=== PATIENT | female | born 1945 | race Caucasian/White ===

== ENCOUNTER 2019-03-11 09:52 | Inpatient (IN) | payer BC ==
[~2019-03-11] VITALS: Ht 162.6 cm; Wt 92.1 kg
--- NOTE | 2019-03-11 07:50 | NUR ---
Opening Note Report received from [facility] shift nurse. Patient is awake, alert, and oriented x 4. patient is flushed around the face, neck, and back. Stated, that this has been going on for several days. 02 is at 2L via NC, current O2 is 97%. Patient is getting breathing tx q4h. IV is on the RAC 22g, SL. Call light is within reach and bed is in the lowest position. Will continue to monitor.
[~2019-03-11 09:52] MED LIST: ALBU8.5H8 INH; CELE200C PO; ECO325 PO; GLIP5TAB26 PO; HYDR-1189 PO; LISI10TA5 PO; LOVA40TA75 PO; ROPI2TAB4 PO
--- NOTE | 2019-03-11 10:03 | NUR ---
Patient to ER bed 3 to gown for evaluation. Side rails up. Report given to Skyler DARDEN.
[2019-03-11 10:04] VITALS: BP_SYST 101
--- NOTE | 2019-03-11 10:10 | NUR ---
Patient AAOx4 c/o bilateral leg swelling with pitting edema 4+ and erythema on bilateral heels. Patient reports PMH of HTN, DM, hyperlipidemia, CKD Stage 4, and arthritis. Patient denies any allergies. Skin warm/pink/dry and respirations even and unlabored. No signs or symptoms of acute distress noted.
--- NOTE | 2019-03-11 10:35 | NUR ---
ER Dr. Gipson at bedside examining patient.
--- NOTE | 2019-03-11 10:37 | NUR ---
# 22 gauge angiocath placed to left hand. Use of asceptic technique. Opsite placed over site. Blood return noted. Blood for lab drawn from site. Flushed with 10 cc of normal saline. No evidence of infiltration noted. Patient tolerated well.
[2019-03-11] MEDS ORDERED: cefTRIAXone 1 GM IVPB PREMIX 50 ML IV ONE (10:45)
[2019-03-11 11:09] LABS: BASOPHILS % (AUTO) 0.3 % (0.0-2.0); EOSINOPHILS % (AUTO) 0.2 % (0.0-4.0); HEMATOCRIT 26.6 % (36-48); LYMPHOCYTES # (AUTO) 0.9 K/uL (1.0-5.5); LYMPHOCYTES % (AUTO) 8.3 % (20.5-51.5); MEAN CORPUSCULAR HEMOGLOBIN 32 pg (27-31); MEAN CORPUSCULAR HGB CONC 34 % (32-36); MEAN CORPUSCULAR VOLUME 96 fL (79.0-98.0); MONOCYTES # (AUTO) 0.6 K/uL (0.0-1.0); MONOCYTES % (AUTO) 5.7 % (1.7-9.3); NEUTROPHILS # (AUTO) 9.1 K/uL (1.8-7.7); NEUTROPHILS % (AUTO) 85.5 % (40.0-70.0); PLATELET COUNT (AUTO) 258 K/uL (130-430); RED BLOOD CELL COUNT(AUTO) 2.77 MIL/uL (4.2-6.2); RED CELL DISTRIBUTION WIDTH 15.5 % (9.0-15.0); WHITE BLOOD COUNT (AUTO) 10.7 K/uL (4.8-10.8)
[2019-03-11 11:11] LABS: HEMOGLOBIN 8.9 g/dL (12.0-16.0)
[2019-03-11 11:21] LABS: ANION GAP 15 (5-15); CALCIUM 8.9 mg/dL (8.4-11.0); CHLORIDE 103 mmol/L (98-107); CREATININE 4.03 mg/dL (0.55-1.30); GLUCOSE 126 mg/dL (70-99); SODIUM SERUM 134 mmol/L (136-145); UREA NITROGEN, BLOOD 90 mg/dL (8-21)
--- NOTE | 2019-03-11 11:21 | NUR ---
US Doppler being done at bedside.
[2019-03-11 11:26] LABS: ALANINE AMINOTRANSFERASE 34 U/L (12-78); ALBUMIN 3.1 g/dL (3.4-4.8); ASPARTATE AMINOTRANSFERASE 26 U/L (10-37); TOTAL BILIRUBIN 0.4 mg/dL (0.0-1.0)
[2019-03-11 11:30] LABS: POTASSIUM 5.8 mmol/L (3.5-5.1)
[2019-03-11 11:46] LABS: INR 1.3 (0.8-1.2); PROTHROMBIN TIME 13.5 SECS (9.5-12.5)
--- NOTE | 2019-03-11 12:51 | NUR ---
Medication reconciliation unable to be obtained.
--- NOTE | 2019-03-11 13:37 | NUR ---
DR ADAME PAGED PER ADMISSION
[2019-03-11] MEDS ORDERED: CALCIUM GLUCONATE 1 GM/10 ML VIAL IVP ONE (14:15)
[2019-03-11] MEDS ORDERED: SODIUM BICARBONATE 8.4% JECT 50 MEQ/50 ML SYRINGE IVP ONE (14:15)
--- NOTE | 2019-03-11 15:03 | NUR ---
ADMISSION NOTE Received patient from ER via gurney. Patient admitted with diagnosis of cellultis, renal failure. Patient is awake, alert, oriented X3. Patient oriented to hospital room, call light, toileting, pain management and safety-teach back done. Personal belongings checked and Belongings List documented. Call light within reach.
--- NOTE | 2019-03-11 15:16 | NUR ---
Transfer to telemetry via ACLS protocol. Licensed nurse present. IV present no signs or symptoms of infiltration.
[2019-03-11 15:17] VITALS: BP_SYST 119
--- NOTE | 2019-03-11 15:17 | NUR ---
Initial Note Report received from Skyler ER nurse. Patient is a and o X 3. Patient is unable to ambulate at the moment d/t BLE pain. LLE is red, edema x 3. IV is on the RAC 20g, Sl. Call light is within reach and bed is in the lowest position. Will continue to monitor.
[2019-03-11] MEDS ORDERED: VANCOMYCIN HCL 1,000 MG in NS 250 ML IV ONE (16:00)
[2019-03-11] MEDS ORDERED: DEXTROSE 50% JECT 50 ML DISP.SYRIN IVP PRN (16:45)
--- NOTE | 2019-03-11 16:48 | NUR ---
CONSULT: NEPHRO. DR. ADORNO CALLED (DR. SALES [employer] MACHINE TENDER) SPOKE TO NAYELY DIALED [phone] ADAME
[2019-03-11] MEDS: NACL 0.9% 1,000 ML IV SCH (16:59)
[2019-03-11] MEDS ORDERED: PIPERACILLIN/TAZOBACTAM 2.25 GM in NS 50 ML IV ONE (17:30)
--- NOTE | 2019-03-11 18:08 | NUR ---
Closing Note Patient is currently resting in bed. No c/o pain or distress at the moment. IV is on the RAC 20g running NS@60. Call light is within reach and bed is in the lowest position. Will endorse care to the oncoming nurse.
--- NOTE | 2019-03-11 18:50 | NUR ---
MD Rounds Dr. Zaman is examining the patient at the bedside. Orders received.
--- NOTE | 2019-03-11 19:20 | NUR ---
INITIAL NOTES: pt is in bed alert, awake, oriented x 4. no complain of pain. not distress. stable . vital sign are with in normal limit. sinus rhythm on monitor. ivf infusing to left hand using gauge 22- infusing well. no sign of infiltration. pt is has bilateral lower extremity pitting edema, left leg has redness cause by cellulitis. explain to pt plan of care. how to use call light. and safety. instructed to call for assistance and pain. pt demonstrate and verbalized understanding. call light in reach. side rails x 2. low bed position. bed alarm on. will monitor.
[2019-03-11 20:49] VITALS: BP_SYST 115
--- NOTE | 2019-03-11 22:00 | NUR ---
pt is still awake, alert. assisted to bedpan. clean pt and change chux, tolerate well. call light in reach, side rails up. bed alarm on. will monitor.
[2019-03-11 23:38] VITALS: BP_SYST 106
--- NOTE | 2019-03-12 | NUR ---
pt call for bed, stable. no pain. assisted to bed. clean pt. tolerate well. kirt light in reach. will monitor.
[2019-03-12] MEDS: PIPERACILLIN/TAZOBACTAM 2.25 GM in NS 50 ML IV SCH ×4 (00:14→17:36)
--- NOTE | 2019-03-12 01:57 | NUR ---
sleeping, no pain. no breathing difficulty, stable. side rails up. call light in reach. will monitor.
--- NOTE | 2019-03-12 05:10 | NUR ---
notes: sleeping,comfortable no pain. no breathing difficulty, stable. side rails up. call light in reach. will monitor.
[2019-03-12] MEDS: NACL 0.9% 1,000 ML IV SCH (06:01)
--- NOTE | 2019-03-12 06:55 | NUR ---
Nutrition Update David Scale 14 noted. Pt admitted for Cellulitis, Renal Failure Diet: Renal Standard 2gm Na 3gm K 1gm Phos BMI: 34.8 kg/m2 RD to follow per nutrition care standards.
--- NOTE | 2019-03-12 07:25 | NUR ---
closing: p tis sleeping, comfortable. no breathing difficulty, not distress, no pain. stable. ivf infusing well. needs attended the whole shift. call light in reach, side rails up. bedside report given to am rn.
[2019-03-12 08:00] VITALS: BP_SYST 110
--- NOTE | 2019-03-12 08:00 | NUR ---
initial notes rec patient asleep but aorusable to stimuli.ivf infusing well on the l hand. no infiltration noted. resp easy and unlabored. no osb noted. bed to the lowest position and side rails up and locked. call light withn reached and knows when to call for assistance. will continue to monitor patient.
[2019-03-12 11:12] VITALS: BP_SYST 111
[2019-03-12] MEDS: INSULIN REGULAR, HUMAN 100 UNITS/ML, 10 ML VIAL (humuLIN R) SUBCUT PRN ×2 (11:48→17:40)
[2019-03-12 15:12] VITALS: BP_SYST 112
[2019-03-12 15:31] LABS: BASOPHILS # (AUTO) 0.1 K/uL (0.0-0.2); BASOPHILS % (AUTO) 0.6 % (0.0-2.0); EOSINOPHILS # (AUTO) 0.1 K/uL (0.0-0.4); EOSINOPHILS % (AUTO) 1.2 % (0.0-4.0); HEMATOCRIT 30.5 % (36-48); LYMPHOCYTES % (AUTO) 10.7 % (20.5-51.5); MEAN CORPUSCULAR HEMOGLOBIN 32 pg (27-31); MEAN CORPUSCULAR HGB CONC 33 % (32-36); MEAN CORPUSCULAR VOLUME 96 fL (79.0-98.0); MONOCYTES # (AUTO) 0.6 K/uL (0.0-1.0); MONOCYTES % (AUTO) 6.3 % (1.7-9.3); NEUTROPHILS # (AUTO) 7.7 K/uL (1.8-7.7); NEUTROPHILS % (AUTO) 81.2 % (40.0-70.0); PLATELET COUNT (AUTO) 279 K/uL (130-430); RED BLOOD CELL COUNT(AUTO) 3.18 MIL/uL (4.2-6.2); RED CELL DISTRIBUTION WIDTH 15.3 % (9.0-15.0); WHITE BLOOD COUNT (AUTO) 9.5 K/uL (4.8-10.8)
[2019-03-12 15:41] LABS: ALANINE AMINOTRANSFERASE 40 U/L (12-78); ALBUMIN 2.5 g/dL (3.4-4.8); ANION GAP 11 (5-15); ASPARTATE AMINOTRANSFERASE 34 U/L (10-37); CALCIUM 9.1 mg/dL (8.4-11.0); CHLORIDE 106 mmol/L (98-107); CREATININE 2.53 mg/dL (0.55-1.30); GLUCOSE 211 mg/dL (70-99); POTASSIUM 4.8 mmol/L (3.5-5.1); SODIUM SERUM 136 mmol/L (136-145); TOTAL BILIRUBIN 0.3 mg/dL (0.0-1.0); UREA NITROGEN, BLOOD 58 mg/dL (8-21)
--- NOTE | 2019-03-12 19:42 | NUR ---
Opening note Received patient AOx4, resting supine in bed, no s/sx of distress noted. NS infusing at 60 ml/hr. Bed is locked to lowest position, side rails up 3x, and bed alarm on.Instructed on use of call light. Updated board.
[2019-03-12 20:00] VITALS: BP_SYST 108
--- NOTE | 2019-03-12 23:50 | NUR ---
Antibiotic Due antibiotic administered and fingerstick blood glucose test done. Patient assisted w/ bed salazar. Safety precautions in place and call light w/in reach.
[2019-03-13 00:03] VITALS: BP_SYST 114; BP_SYST 136
[2019-03-13] MEDS: NACL 0.9% 1,000 ML IV SCH (00:54)
[2019-03-13] MEDS: PIPERACILLIN/TAZOBACTAM 2.25 GM in NS 50 ML IV SCH ×4 (00:54→18:30)
--- NOTE | 2019-03-13 02:20 | NUR ---
Rounds Patient is resting w/eyes closed. Symmetrical rise and fall of chest noted, non-labored breathing. Safety precautions in place and call light w/in reach. Will monitor.
--- NOTE | 2019-03-13 04:20 | NUR ---
Reposition Patient is awake and watching t.v. The pillows under her legs were adjusted for comfort and heels are off loading. She was encouraged to turn to her right side and a pillow was place on back for support. No further needs.
--- NOTE | 2019-03-13 06:50 | NUR ---
closing note Patient is awake. Due antibiotic given and Fingerstick blood glucose test done, no insulin coverage is due. Safety precautions maintained and call light w/in reach. Needs met throughout shift, will endorse care to oncoming nurse.
[2019-03-13 06:51] LABS: ALANINE AMINOTRANSFERASE 40 U/L (12-78); ALBUMIN 2.4 g/dL (3.4-4.8); ANION GAP 13 (5-15); ASPARTATE AMINOTRANSFERASE 33 U/L (10-37); CALCIUM 8.5 mg/dL (8.4-11.0); CHLORIDE 110 mmol/L (98-107); CREATININE 2.03 mg/dL (0.55-1.30); GLUCOSE 128 mg/dL (70-99); POTASSIUM 5.1 mmol/L (3.5-5.1); SODIUM SERUM 141 mmol/L (136-145); TOTAL BILIRUBIN 0.2 mg/dL (0.0-1.0); UREA NITROGEN, BLOOD 49 mg/dL (8-21)
[2019-03-13 07:33] LABS: WHITE BLOOD COUNT (AUTO) 9.4 K/uL (4.8-10.8)
[2019-03-13 07:34] LABS: HEMATOCRIT 29.3 % (36-48); HEMOGLOBIN 9.5 g/dL (12.0-16.0); MEAN CORPUSCULAR HEMOGLOBIN 31 pg (27-31); MEAN CORPUSCULAR HGB CONC 32 % (32-36); MEAN CORPUSCULAR VOLUME 97 fL (79.0-98.0); NEUTROPHILS % (AUTO) 72.2 % (40.0-70.0); PLATELET COUNT (AUTO) 263 K/uL (130-430); RED BLOOD CELL COUNT(AUTO) 3.03 MIL/uL (4.2-6.2); RED CELL DISTRIBUTION WIDTH 15.1 % (9.0-15.0)
[2019-03-13 07:35] LABS: BASOPHILS # (AUTO) 0.1 K/uL (0.0-0.2); BASOPHILS % (AUTO) 0.6 % (0.0-2.0); EOSINOPHILS # (AUTO) 0.3 K/uL (0.0-0.4); EOSINOPHILS % (AUTO) 2.9 % (0.0-4.0); LYMPHOCYTES # (AUTO) 1.6 K/uL (1.0-5.5); LYMPHOCYTES % (AUTO) 16.7 % (20.5-51.5); MONOCYTES # (AUTO) 0.7 K/uL (0.0-1.0); MONOCYTES % (AUTO) 7.6 % (1.7-9.3); NEUTROPHILS # (AUTO) 6.8 K/uL (1.8-7.7)
--- NOTE | 2019-03-13 07:35 | NUR ---
opening note patient is resting in bed, A&Ox4, assessment completed, educated building stonecutter light system and plan of care, patient verbalized understanding, patient says pain is only present when someone touching her legs, IV fluids will be discontinued per MD order, no other needs at this time, fall/safety precautions in place.
[2019-03-13 08:00] VITALS: BP_SYST 111
[2019-03-13] MEDS: FUROSEMIDE 20 MG/2 ML VIAL IVP SCH ×2 (08:24→21:52)
--- NOTE | 2019-03-13 09:15 | NUR ---
patient off unit going for a CT scan.
[2019-03-13 09:28] LABS: BILIRUBIN,URINE NEGATIVE (NEGATIVE); CLARITY/URINE CLEAR (CLEAR); COLOR,URINE YELLOW (YELLOW); GLUCOSE,URINE TRACE (NEGATIVE); KETONES,URINE NEGATIVE (NEGATIVE); LEUKOCYTE ESTERASE ,URINE NEGATIVE (NEGATIVE); NITRITE, URINE NEGATIVE (NEGATIVE); PH,URINE 5.5 (5.0-8.0); PROTEIN URINE NEGATIVE (NEGATIVE); UROBILINOGEN,URINE 0.2 (0.2-1.0)
[2019-03-13 09:36] LABS: BLOOD, URINE TRACE (NEGATIVE)
[2019-03-13 09:40] LABS: BACTERIA,URINE FEW /HPF (None Seen); MUCUS,URINE None Seen /LPF (None Seen); RBC,URINE 0-3 /HPF (0-3); WBC,URINE 0-3 /HPF (0-3)
--- NOTE | 2019-03-13 09:40 | NUR ---
patient back on unit helped patient with the bedpan, changed chux and linen, no other needs at this time, fall/safety precautions in place.
--- NOTE | 2019-03-13 11:23 | NUR ---
accuchek and zosyn patient resting in bed, accuchek done and sliding scale needed per MD order, educated on medication uses and side effects, patient verbalized understanding, no other needs at this time, fall/safety precautions in place.
[2019-03-13] MEDS: INSULIN REGULAR, HUMAN 100 UNITS/ML, 10 ML VIAL (humuLIN R) SUBCUT PRN ×2 (11:26→17:30)
[2019-03-13 11:58] VITALS: BP_SYST 136
--- NOTE | 2019-03-13 14:26 | NUR ---
rounds patient resting in bed, eyes closed breathing easy and nonlabored, no needs at this time, fall/safety precautions in place.
[2019-03-13 15:41] VITALS: BP_SYST 109
[2019-03-13] MEDS ORDERED: VANCOMYCIN HCL 1,500 MG in NS 250 ML IV SCH (17:00)
--- NOTE | 2019-03-13 18:30 | NUR ---
PAGED DR. ADORNO AND DR. SALES WERE CALL @ [phone] RN CALLED THEM BOTH . SHE ASKED ME TO ENTERED THIS NOTE
--- NOTE | 2019-03-13 18:46 | NUR ---
closing note patient is resting in bed, patient says pain is only present when someone touching her legs, patient was assisted with bedpan, IV antibiotics running, no other needs at this time, fall/safety precautions in place, will endorse report to [facility] shift nurse about awaiting call from Dr Mcneil or Dr Zaman about orders for a collado if they okay it, battery charger is aware.
--- NOTE | 2019-03-13 18:49 | NUR ---
PAGED I PAGED DR. ADORNO THIS IS THE SECOND CALL I SPIKE WITH VALERIE DUNBAR
--- NOTE | 2019-03-13 19:35 | NUR ---
ROUNDS PATIENT RESTING COMFORTABLY IN BED, WATCHING TV, VITALS STABLE, DENIES ANY PAIN AND DISCOMFORT AT THIS TIME. ASSESSMENT DONE AND DOCUMENTED. SEE FLOWSHEET. NEEDS ATTENDED TO. SAFETY AND FALL PRECAUTION MEASURES IN PLACED. BED IN LOW AND LOCKED POSITION. BED ALARM ON. CALL LIGHT PLACED WITHIN REACH.
--- NOTE | 2019-03-13 21:06 | NUR ---
MEDICATION DUE MEDICATIONS GIVEN SCHEDULED, TOLERATED WELL. WILL CONTINUE TO MONITOR.
[2019-03-13] MEDS: HEPARIN SODIUM,PORCINE 5000 UNITS/ML VIAL SUBCUT SCH (21:47)
[2019-03-13 23:15] VITALS: BP_SYST 112
--- NOTE | 2019-03-14 00:12 | NUR ---
PATIENT RESTING: Patient resting quietly. No acute distress noted. Vital signs within normal range.
[2019-03-14] MEDS: PIPERACILLIN/TAZOBACTAM 2.25 GM in NS 50 ML IV SCH ×3 (00:25→11:29)
[2019-03-14] MEDS: INSULIN REGULAR, HUMAN 100 UNITS/ML, 10 ML VIAL (humuLIN R) SUBCUT PRN ×2 (00:26→11:31)
[2019-03-14 00:38] LABS: BILIRUBIN,URINE NEGATIVE (NEGATIVE); CLARITY/URINE CLEAR (CLEAR); COLOR,URINE YELLOW (YELLOW); GLUCOSE,URINE NEGATIVE (NEGATIVE); KETONES,URINE NEGATIVE (NEGATIVE); LEUKOCYTE ESTERASE ,URINE NEGATIVE (NEGATIVE); NITRITE, URINE NEGATIVE (NEGATIVE); PROTEIN URINE NEGATIVE (NEGATIVE); UROBILINOGEN,URINE 0.2 (0.2-1.0)
[2019-03-14 00:39] LABS: BLOOD, URINE TRACE (NEGATIVE)
[2019-03-14 00:41] LABS: BACTERIA,URINE FEW /HPF (None Seen); WBC,URINE 0-3 /HPF (0-3)
--- NOTE | 2019-03-14 02:17 | NUR ---
ROUNDS PATIENT ASLEEP, RESPIRATIONS EVEN AND UNLABORED, NO SIGNS OF ANY PAIN AND DISCOMFORT NOTED. WILL CONTINUE TO MONITOR.
--- NOTE | 2019-03-14 04:13 | NUR ---
ROUNDS PATIENT ASLEEP, NO SOB NOR PAIN AND DISCOMFORT NOTED. WILL CONTINUE TO MONITOR.
--- NOTE | 2019-03-14 06:52 | NUR ---
CLOSING NOTES PATIENT AWAKE, VITALS STABLE, DENIES ANY PAIN AT THIS TIME. ALL NEEDS ATTENDED TO. SAFETY MEASURES MAINTAINED. CALL LIGHT PLACED WITHIN REACH.
--- NOTE | 2019-03-14 07:40 | NUR ---
opening note patient is resting in bed, A&Ox4, assessment completed, educated podiatric surgeon light system and plan of care, patient verbalized understanding, patient says pain is only present when someone touching her legs, no other needs at this time, fall/safety precautions in place, collado in place.
[2019-03-14 08:00] VITALS: BP_SYST 103
[2019-03-14] MEDS: FUROSEMIDE 20 MG/2 ML VIAL IVP SCH (08:15)
[2019-03-14] MEDS: HEPARIN SODIUM,PORCINE 5000 UNITS/ML VIAL SUBCUT SCH (08:17)
[2019-03-14 09:17] LABS: ANION GAP 12 (5-15); CALCIUM 8.8 mg/dL (8.4-11.0); CHLORIDE 100 mmol/L (98-107); CREATININE 2.04 mg/dL (0.55-1.30); GLUCOSE 316 mg/dL (70-99); POTASSIUM 4.3 mmol/L (3.5-5.1); SODIUM SERUM 135 mmol/L (136-145); UREA NITROGEN, BLOOD 39 mg/dL (8-21)
[2019-03-14] MEDS ORDERED: ROCPM1 IV (09:30)
[2019-03-14] MEDS ORDERED: LACT1CAP72 PO (09:30)
--- NOTE | 2019-03-14 09:45 | NUR ---
assisted patient with bedpan patient had bowel movement, did sulma care, patient tolerated well, no other needs at this time, fall/safety precautions in place, collado in place.
--- NOTE | 2019-03-14 10:12 | NUR ---
SNF: Currently looking for accepting SNF. Mindi Tabor, HCP [employer] [phone]
[2019-03-14 11:45] VITALS: BP_SYST 114
[2019-03-14 12:13] VITALS: BP_SYST 114
--- NOTE | 2019-03-14 14:50 | NUR ---
PT TRANSFERRED Report given to Joyce at [facility]. Transfer packet with Transfer Orders and Medication Reconciliation form given to EMT with report. Exitcare provided. [facility] ID band removed, replaced with ID band with pt's name and . IV catheter left in. Up left in. All belongings sent with patient. Patient left floor via gurney escorted by EMT in no distress.
== END 2019-03-14 14:50 | DRG 603 ==
LOC: SED 09:52 → STU 14:09 → SMU 03-12 10:26
PROVIDERS: ADMIT Internal Medicine Hospice and Palliative Medicine; ATTEND Internal Medicine Hospice and Palliative Medicine
DX: L03.116 Cellulitis of left lower limb (principal); N18.4 Chronic kidney disease, stage 4 (severe); E44.1 Mild protein-calorie malnutrition; E11.22 Type 2 diabetes mellitus with diabetic chronic kidney disease; I12.9 Hypertensive chronic kidney disease with stage 1 through stage 4 chronic kidney disease, or unspecified chronic kidney disease; Z96.651 Presence of right artificial knee joint; M19.90 Unspecified osteoarthritis, unspecified site; E78.5 Hyperlipidemia, unspecified; Z86.718 Personal history of other venous thrombosis and embolism; Z79.899 Other long term (current) drug therapy; Z79.82 Long term (current) use of aspirin
CPT/HCPCS: 36415; 71045; 76770; 80048; 80053; 81000-TC; 82550-TC; 82962; 83605; 83874; 84302-TC; 84484; 85025; 85610-TC; 85730-TC; 87040-TC; 93005; 93971; 96365; 96375; 99285; G0378; J0610; J0696; J1644; J1815; J1940; J2543; J3370; J7030; J7050

== ENCOUNTER 2023-10-08 11:19 | Emergency (ER) | payer BC ==
[~2023-10-08] VITALS: Ht 162.6 cm; Wt 97.5 kg
[2023-10-08 11:19] VITALS: BP_SYST 130; PULSE 90; RESP 17; TEMP 98.1; O2SAT 97
[~2023-10-08 11:19] MED LIST changes: -HYDR-1189 PO; +HYDR-3919 PO; +LACT1CAP72 PO; -LISI10TA5 PO; +ROCPM1 IV
[2023-10-08 13:05] LABS: BASOPHILS % (AUTO) 0.6 % (0.0-2.0); EOSINOPHILS % (AUTO) 0.9 % (0.0-4.0); HEMATOCRIT 31.6 % (36-48); HEMOGLOBIN 10.6 g/dL (12.0-16.0); LYMPHOCYTES % (AUTO) 19.4 % (20.5-51.5); MEAN CORPUSCULAR HEMOGLOBIN 33 pg (27-31); MEAN CORPUSCULAR HGB CONC 34 % (32-36); MEAN CORPUSCULAR VOLUME 99 fL (79.0-98.0); MONOCYTES # (AUTO) 0.5 K/uL (0.0-1.0); MONOCYTES % (AUTO) 9.4 % (1.7-9.3); NEUTROPHILS # (AUTO) 3.5 K/uL (1.8-7.7); NEUTROPHILS % (AUTO) 69.7 % (40.0-70.0); PLATELET COUNT (AUTO) 270 K/uL (130-430); RED BLOOD CELL COUNT(AUTO) 3.19 MIL/uL (4.2-6.2); RED CELL DISTRIBUTION WIDTH 15.5 % (9.0-15.0)
[2023-10-08 13:16] LABS: ANION GAP 8 (5-15); CALCIUM 9.1 mg/dL (8.4-11.0); CARBON DIOXIDE 28 mmol/L (23-29); CHLORIDE 104 mmol/L (98-107); GLUCOSE 158 mg/dL (74-106); POTASSIUM 5.1 mmol/L (3.5-5.1); SODIUM SERUM 140 mmol/L (136-145); UREA NITROGEN, BLOOD 63 mg/dL (8-21)
[2023-10-08 13:36] LABS: BILIRUBIN,URINE NEGATIVE (NEGATIVE); BLOOD, URINE NEGATIVE (NEGATIVE); CLARITY/URINE CLEAR (CLEAR); COLOR,URINE YELLOW (YELLOW); GLUCOSE,URINE NEGATIVE (NEGATIVE); KETONES,URINE NEGATIVE (NEGATIVE); LEUKOCYTE ESTERASE ,URINE NEGATIVE (NEGATIVE); NITRITE, URINE NEGATIVE (NEGATIVE); PH,URINE 5.5 (5.0-8.0); PROTEIN URINE NEGATIVE (NEGATIVE); UROBILINOGEN,URINE 0.2 (0.2-1.0)
[2023-10-08 16:23] VITALS: BP_SYST 132; PULSE 87; RESP 16; TEMP 97.7; O2SAT 97
== END 2023-10-08 16:25 | disposition home or self-care (01) ==
LOC: SED 11:19
DX: S93.401A Sprain of unspecified ligament of right ankle, initial encounter (principal); R53.1 Weakness; E11.9 Type 2 diabetes mellitus without complications; I10 Essential (primary) hypertension; Z79.899 Other long term (current) drug therapy; W19.XXXA Unspecified fall, initial encounter; Y93.89 Activity, other specified; Y92.89 Other specified places as the place of occurrence of the external cause; Y99.8 Other external cause status
CPT/HCPCS: 36415; 80048; 81001; 81003; 85025; 87040; 99284